=== PATIENT | female | born 1975 | race Caucasian/White ===

== ENCOUNTER 2020-09-04 12:14 | Outpatient (CLI) | payer BC, SELFPAY ==
--- NOTE | 2020-09-04 12:21 | XR_ITS ---
WS: [id number] Left ankle, 3 views, 09/04/2020 Clinical Data: M25.572 - Pain in left ankle and joints of left foot Comparison: None. Findings: No fractures or dislocations are seen. The ankle mortise is normal. The talus and calcaneus are unrem arkable. No soft tissue swelling over the medial or lateral malleolus is seen. There is a plantar spur. XR/XR ankle LT min 3V* [id number] Impression: Negative left ankle.
== END 2020-09-04 12:15 | disposition home or self-care (01) ==
LOC: RAD 12:19
PROVIDERS: Visit Provider Emergency Medicine
DX: M25.572 Pain in left ankle and joints of left foot (principal)
CPT/HCPCS: 73610

== ENCOUNTER → 2021-02-15 11:12 | Outpatient (BNVA) | payer BC, SELFPAY | PROVIDERS: Visit Provider Nurse Practitioner Family | DX: Z20.822 Contact with and (suspected) exposure to COVID-19 (principal) | CPT/HCPCS: 87635 ==